=== PATIENT | male | born 1980 | race Hispanic/Latino ===

== ENCOUNTER 2022-06-18 02:07 | Emergency (ER) | payer OTHER ==
[~2022-06-18] VITALS: Ht 188 cm; Wt 90.7 kg
[2022-06-18] MEDS ORDERED: MORPHINE 4 MG SYG ONE (02:20)
[2022-06-18] MEDS ORDERED: ONDANSETRON 4MG INJ ONE (02:20)
[2022-06-18] MEDS ORDERED: 0.9%NACL 1000ML 1,000 ML IV SCH ×2 (02:30)
[2022-06-18] MEDS ORDERED: MORPHINE 4 MG SYG IVP ONE ×2 (02:30→03:00)
[2022-06-18] MEDS ORDERED: ACETAMINOPHEN 325 MG TAB PO ONE (02:30)
[2022-06-18] MEDS ORDERED: ONDANSETRON 4MG INJ IVP ONE (02:30)
[2022-06-18] MEDS ORDERED: ZOSYN 3.375GM +NS 50ML IVPB SCH (02:30)
[2022-06-18 02:39] LABS: BASOPHILS % (AUTO) 0.3 % (0.0-5.0); EOSINOPHILS % (AUTO) 0.4 % (0.0-8.0); HEMATOCRIT 36.8 % (42-54); LYMPHOCYTES % (AUTO) 15.4 % (21.0-51.0); MEAN CORPUSCULAR HEMOGLOBIN 26.7 pg (27.0-33.0); MEAN CORPUSCULAR VOLUME 78.5 fL (79-99); NEUTROPHILS % (AUTO) 74.6 % (40.0-77.0); PLATELET COUNT (AUTO) 189 K/uL (130-400); RED BLOOD CELL COUNT(AUTO) 4.69 MIL/uL (4.50-6.20); RED CELL DISTRIBUTION WIDTH 12.5 % (11.0-15.5); WHITE BLOOD COUNT (AUTO) 7.2 K/uL (4.8-10.8)
[2022-06-18 02:52] LABS: CREATININE 1.2 mg/dL (0.5-1.5); POTASSIUM 3.4 mmol/L (3.5-5.1)
[2022-06-18 02:56] LABS: ALBUMIN 3.4 g/dL (3.5-5.0); TOTAL PROTEIN, SERUM 6.8 g/dL (6.0-8.3)
[2022-06-18] MEDS ORDERED: IOHEXOL 350 MG/ML 100ML INFUS..BTL IV ONE (03:05)
[2022-06-18] MEDS ORDERED: HYDROMORPHONE 1 MG INJ IVP ONE (04:00)
[2022-06-18] MEDS ORDERED: OXYC-38 PO (04:44)
[2022-06-18] MEDS ORDERED: LOPE2CAP PO (04:44)
[2022-06-18] MEDS ORDERED: CIPR-278 PO (04:44)
[2022-06-18 04:50] VITALS: BP 115/65
== END 2022-06-18 05:13 | disposition home or self-care (01) ==
LOC: EDH 02:07
DX: A09 Infectious gastroenteritis and colitis, unspecified (principal)
CPT/HCPCS: 99285; 74177; 96365; 96375; 80053; 83690; 85025; 87040 ×2; 83605; 36415; 96376; J1170; J2405; J2270 ×2; J2543; Q9967